=== PATIENT | male | born 1960 | race Caucasian/White ===

== ENCOUNTER 2020-03-22 17:35 | Emergency (ER) | payer SELFPAY ==
[~2020-03-22] VITALS: Ht 177.8 cm; Wt 88.5 kg
[2020-03-22 18:00] VITALS: BP 133/92
--- NOTE | 2020-03-22 18:00 | NUR ---
ED Nurse Note: Pt walked into ED for c/o allergic reaction since 4 hours ago. Pt states that he used hair dye yesterday that makes. Pt has slight swelling on eyes and ears. Pt also has neck pain /. Pt is alert and orientedx4, ambulatory.
[2020-03-22] MEDS ORDERED: DiphenhydrAMINE 50mg/ml Inj IVP ONE (18:15)
[2020-03-22] MEDS ORDERED: Solu-MEDROL 125mg Inj IVP ONE (18:15)
[2020-03-22] MEDS ORDERED: EPINEPHrine 1mg/1ml Amp IM ONE (18:15)
--- NOTE | 2020-03-22 18:41 | Emergency Room Report ---
History of Present Illness General Chief Complaint: Allergic Reaction Source: Patient Present Illness HPI Disclaimer: Please note that this report is being documented using [employer] technology. This can lead to erroneous entry secondary to incorrect interpretation by the dictating instrument. HPI: 59-year-old male no reported past medical history presents with possible allergic reaction to a hair dye. He states he was dying his hair and kennedy approximately 2 days ago and developed swelling of the face and scalp and neck. This has continued to today. He did wash his face and hair. He has been taking antihistamines in addition to all in all, aspirin and naproxen. He comes today because the swelling has been persistent it does report some mild shortness of breath. No history of allergy, allergic reaction or anaphylaxis. Allergies: Coded Allergies: No Known Allergies (Unverified , 03/22/20) COVID-19 Screening Contact w/high risk pt: No Experienced COVID-19 symptoms?: No COVID-19 Testing performed [employer]: No Patient History Reviewed Nursing Documentation: PMH: Agreed; PSxH: Agreed Nursing Documentation-PMH Past Medical History: No Stated History Review of Systems All Other Systems: negative except mentioned in HPI Physical Exam Vital Signs Date Time Temp Pulse Resp B/P (MAP) Pulse Ox O2 Delivery O2 Flow Rate FiO2 03/22/20 17:42 98.2 110 19 140/93 (109) 95 Room Air Sp02 EP Interpretation: reviewed, normal General Appearance: no apparent distress, alert Head: normocephalic, atraumatic, other - Facial edema noted around the eyes, cheeks, scalp, Eyes: bilateral eye PERRL, bilateral eye EOMI ENT: hearing grossly normal, moist mucus membranes, other - No oral edema noted Neck: full range of motion, supple, other - Edema noted of the posterior neck Respiratory: lungs clear, normal breath sounds, no rhonchi, no respiratory distress, no retraction, no wheezing Cardiovascular #1: normal peripheral pulses, no murmur, tachycardia Gastrointestinal: non tender, soft, non-distended, no guarding Neurologic: alert, oriented x3, no focal defects Skin: normal color, warm/dry Medical Decision Making Diagnostic Impression: Primary Impression: Allergic reaction ER Course MDM: Differential diagnosis included but not limited to acute allergic reaction, contact dermatitis, less likely anaphylaxis Clinical course-patient did have facial edema noted. There is no oral edema but he did note some shortness of breath so I did give 1 dose of epi in addition to Solu-Medrol and Benadryl in the ER. Patient also given Pepcid. My reassessment he felt improved. His swelling seems slightly improved. He was in no distress. He was stable for discharge. Will be discharged home on Pepcid antihistamine, Benadryl, steroids and recommended avoiding the hair dye in the future. Last Vital Signs Date Time Temp Pulse Resp B/P (MAP) Pulse Ox O2 Delivery O2 Flow Rate FiO2 03/22/20 17:42 98.2 110 19 140/93 (109) 95 Room Air Status: improved Disposition: HOME, SELF-CARE Condition: Improved Scripts Diphenhydramine HCl (Benadryl) 25 Mg Capsule 50 MG PO EVERY 6 HOURS PRN for swelling, #28 CAP Prov: Jordan Castillo M.D. 03/22/20 Famotidine* (Pepcid 20mg tablet*) 20 Mg Tablet 20 MG ORAL TWICE A DAY for Gerd, #14 TAB 0 Refills Prov: Jordan Castillo M.D. 03/22/20 Prednisone* (PREDNISONE*) 20 Mg Tablet 40 MG ORAL DAILY, #8 TAB Prov: Jordan Castillo M.D. 03/22/20 Jordan Castillo M.D. Mar 22, 2020 18:41
--- NOTE | 2020-03-22 19:05 | NUR ---
HAND-OFF: Report given to Ro BENJAMIN.
--- NOTE | 2020-03-22 19:06 | NUR ---
ED Nurse Note: Report received from CASSIDY He. Pt is AAOx4, no acute distress. Pt has facial edema, pt denies difficulty breathing, denies scratchy throat. No wheezing noted.
[2020-03-22] MEDS ORDERED: PREDNISONE20 MG ORAL (19:19)
[2020-03-22] MEDS ORDERED: BENADRYL25 M3 PO (19:19)
[2020-03-22] MEDS ORDERED: FAMOTIDINE20 MG ORAL (19:19)
[2020-03-22 19:34] VITALS: BP 127/78
--- NOTE | 2020-03-22 19:34 | NUR ---
ER DISCHARGE NOTE: Patient is cleared to be discharged per ERMD, pt is aox4, on room air, with stable vital signs. pt was given dc paperwork and paper prescriptions with instructions to f/u with PMD or return to ED if s/s worsen, pt was able to verbalize understanding, pt id band and iv site removed without complications. pt is able to ambulate with steady gait. pt took all belongings.
== END 2020-03-22 19:34 | disposition home or self-care (01) ==
LOC: EMR 18:00
DX: T78.40XA Allergy, unspecified, initial encounter (principal); X58.XXXA Exposure to other specified factors, initial encounter; R60.0 Localized edema
CPT/HCPCS: 96372; 96374; 96375; 99284; J0171; J1200; J2930; S0028